=== PATIENT | female | born 1995 | race Caucasian/White ===

== ENCOUNTER 2017-06-14 13:34 | Emergency (ER) | payer OTHER ==
[2017-06-14] MEDS ORDERED: ONDANSETRON HCL INJ/PF 4 MG/2 ML SDV IV ONE (14:09)
[2017-06-14] MEDS ORDERED: PROCHLORPERAZINE EDISYLATE INJ 10 MG/2 ML VIAL IV ONE (14:09)
[2017-06-14] MEDS ORDERED: NORMAL SALINE 1000 ML 1,000 ML IV PRN (14:09)
--- NOTE | 2017-06-14 14:10 | ER Document Report ---
ED Medical Screen (RME) - General Chief Complaint: Headache >24 hrs old Stated Complaint: HEADACHE Time Seen by Provider: 06/14/17 14:09 TRAVEL OUTSIDE OF THE [place] IN LAST 30 DAYS: No - HPI Notes: 06/14/17 14:10 Headache with no relief with Fioricet and Reglan. - Related Data Allergies/Adverse Reactions: amoxicillin [From Augmentin] Allergy (Verified 06/14/17 13:41) clavulanic acid [From Augmentin] Allergy (Verified 06/14/17 13:41) Past Medical History - Social History Frequency of alcohol use: None Drug Abuse: None Renal/ Medical History: Denies: Hx Peritoneal Dialysis Past Surgical History: Reports: Hx Orthopedic Surgery - Right Foot Review of Systems - Review of Systems Constitutional: Other - Headache Physical Exam - Vital signs Vitals: Temp Pulse Resp BP Pulse Ox 98.0 F 94 16 121/74 98 06/14/17 13:38 06/14/17 13:38 06/14/17 13:38 06/14/17 13:38 06/14/17 13:38 - Respiratory Respiratory status: No respiratory distress Chest status: Nontender Breath sounds: Normal Chest palpation: Normal Course - Vital Signs Vital signs: Temp Pulse Resp BP Pulse Ox 98.0 F 94 16 121/74 98 06/14/17 13:38 06/14/17 13:38 06/14/17 13:38 06/14/17 13:38 06/14/17 13:38
[2017-06-14 14:41] LABS: ABSOLUTE LYMPHOCYTES (AUTO) 1.6 10^3/uL (0.5-4.7); ABSOLUTE MONOCYTES (AUTO) 0.5 10^3/uL (0.1-1.4); ABSOLUTE NEUT (AUTO) 6.8 10^3/uL (1.7-8.2); BASOPHILS % (AUTO) 0.3 % (0-2); EOSINOPHILS % (AUTO) 0.4 % (0-6); HEMOGLOBIN 13.4 g/dL (12.0-15.5); HGB HCT DIFFERENCE 1.2; LYMPHOCYTES % (AUTO) 17.7 % (13-45); MEAN CORPUSCULAR HEMOGLOBIN 29.2 pg (27.0-33.4); MEAN CORPUSCULAR HGB CONC 34.3 g/dL (32.0-36.0); MEAN CORPUSCULAR VOLUME 85 fl (80-97); MONOCYTES % (AUTO) 5.2 % (3-13); RED BLOOD COUNT 4.58 10^6/uL (3.72-5.28); RED CELL DISTRIBUTION WIDTH 13.1 % (11.5-14.0); SEGMENTED NEUTROPHILS % (AUTO) 76.4 % (42-78); WHITE BLOOD COUNT 8.8 10^3/uL (4.0-10.5)
[2017-06-14 14:59] LABS: ANION GAP 16 (5-19); BLOOD UREA NITROGEN 6 mg/dL (7-20); CALCIUM 9.8 mg/dL (8.4-10.2); CARBON DIOXIDE 22 mmol/L (22-30); CHLORIDE 102 mmol/L (98-107); CREATININE RESULT 0.44 mg/dL (0.52-1.25); GLUCOSE 79 mg/dL (75-110); POTASSIUM 4.4 mmol/L (3.6-5.0); SODIUM 139.6 mmol/L (137-145)
--- NOTE | 2017-06-14 15:06 | RADIOLOGY REPORT (SQ) ---
EXAM DESCRIPTION: CT HEAD WITHOUT COMPLETED DATE/TIME: 06/14/2017 2:52 pm REASON FOR STUDY: headache COMPARISON: None. TECHNIQUE: Axial images acquired through the brain without intravenous contrast. Images reviewed wi th bone, brain and subdural windows. Images stored on PACS. All CT scanners at this facility use dose modulation, iterative reconstruction, and/or weight based d osing when appropriate to reduce radiation dose to as low as reasonably achievable (ALARA). [facility]: Dose Right [facility]: CareDose [facility]: Dose Right [facility]: Teradose 4D [facility]: [place] RADIATION DOSE: mGy. LIMITATIONS: None. FINDINGS: VENTRICLES: Normal size and contour. CEREBRUM: No masses. No hemorrhage. No midline shift. No evidence for acute infarction. Normal gra y/white matter differentiation. No areas of low density in the white matter. CEREBELLUM: No masses. No hemorrhage. No alteration of density. No evidence for acute infarction. EXTRAAXIAL SPACES: No fluid collections. No masses. ORBITS AND GLOBE: No intra- or extraconal masses. Normal contour of globe without masses. CALVARIUM: No fracture. PARANASAL SINUSES: No fluid or mucosal thickening. SOFT TISSUES: No mass or hematoma. OTHER: No other significant finding. IMPRESSION: NORMAL BRAIN CT WITHOUT CONTRAST. EVIDENCE OF ACUTE STROKE: NO. COMMENT: Quality ID # [id number]: Final reports with documentation of one or more dose reduction techniques (e.g., Automated exposure control, adjustment of the mA and/or kV according to patient size, use of iterative reconstruction technique) TECHNICAL DOCUMENTATION: JOB ID: [id number] [employer]- All Rights Reserved
[2017-06-14] MEDS ORDERED: KETOROLAC TROMETHAMINE INJ/PF 30 MG/1 ML SDV IV ONE (15:10)
--- NOTE | 2017-06-14 15:11 | ER Document Report ---
ED Headache - General Chief Complaint: Headache >24 hrs old Stated Complaint: HEADACHE Time Seen by Provider: 06/14/17 14:09 Notes: 22-year-old female who is 15 weeks has had a headache for 6 weeks. Has spoken with her primary care provider as well as her LEGAL SECRETARY RECEPTIONIST regarding the headaches. Was started on Fioricet, Reglan for the nausea as well as Tylenol but nothing is helped. Went to [facility] today but states that she has they forgot about her in the waiting room so she decided to come here. She denies any neck stiffness. No fever. No abdominal pain. No shortness of breath. No chest pain. No other issues at this time. Denies any dysuria. Had one prior never experienced headaches during that . No recent contacts around sick people. No recent exposures to meningitis. No recent travel outside the country no compromise status of her immune system is reported. TRAVEL OUTSIDE OF THE [place] IN LAST 30 DAYS: No - HPI Patient complains to provider of: Headache, "Migraine" Onset: Other - 6 weeks ago Onset was: Cannot pinpoint Timing: Still present Quality of pain: Throbbing Severity: Moderate Pain Level: 4 Context: denies: CO exposure, Head injury, Insect bite, Meningitis exposure, Tick bite, Other Preceding symptoms: Typical of prior aura(s), Visual disturbance Associated symptoms: Nausea/vomiting, Photophobia. denies: Neck pain Exacerbated by: Light, Noise Similar symptoms previously: Yes Recently seen / treated by doctor: Yes - Related Data Allergies/Adverse Reactions: amoxicillin [From Augmentin] Allergy (Verified 06/14/17 13:41) clavulanic acid [From Augmentin] Allergy (Verified 06/14/17 13:41) Past Medical History - General Information source: Patient - Social History Smoking Status: Never Smoker Frequency of alcohol use: None Drug Abuse: None Lives with: Family, Spouse/Significant other Family History: Reviewed & Not Pertinent Patient has suicidal ideation: No Patient has homicidal ideation: No - Past Medical History Cardiac Medical History: Reports: None Renal/ Medical History: Denies: Hx Peritoneal Dialysis Past Surgical History: Reports: Hx Orthopedic Surgery - Right Foot Review of Systems - Review of Systems Constitutional: No symptoms reported EENT: No symptoms reported Cardiovascular: No symptoms reported Respiratory: No symptoms reported Gastrointestinal: No symptoms reported, Nausea, Vomiting Genitourinary: No symptoms reported Female Genitourinary: No symptoms reported Musculoskeletal: No symptoms reported Skin: No symptoms reported Hematologic/Lymphatic: No symptoms reported Neurological/Psychological: No symptoms reported, Headaches Physical Exam - Vital signs Vitals: Temp Pulse Resp BP Pulse Ox 98.0 F 94 16 121/74 98 06/14/17 13:38 06/14/17 13:38 06/14/17 13:38 06/14/17 13:38 06/14/17 13:38 Interpretation: Normal - General General appearance: Appears well, Alert - HEENT Head: Normocephalic, Atraumatic Eyes: Normal Pupils: PERRL Fundascopic: Normal - Respiratory Respiratory status: No respiratory distress Chest status: Nontender Breath sounds: Normal Chest palpation: Normal - Cardiovascular Rhythm: Regular Heart sounds: Normal auscultation Murmur: No - Abdominal Inspection: Normal Distension: No distension Bowel sounds: Normal Tenderness: Nontender Organomegaly: No organomegaly - Back Back: Normal, Nontender - Extremities General upper extremity: Normal inspection, Nontender, Normal color, Normal ROM , Normal temperature General lower extremity: Normal inspection, Nontender, Normal color, Normal ROM , Normal temperature, Normal weight bearing. No: Marcin's sign - Neurological Neuro grossly intact: Yes Cognition: Normal Orientation: AAOx4 Hayden Coma Scale Eye Opening: Spontaneous Brinnon Coma Scale Verbal: Oriented Hayden Coma Scale Motor: Obeys Commands Brinnon Coma Scale Total: 15 Speech: Normal Motor strength normal: LUE, RUE, LLE, RLE Sensory: Normal - Psychological Associated symptoms: Normal affect, Normal mood - Skin Skin Temperature: Warm Skin Moisture: Dry Skin Color: Normal Course - Re-evaluation Re-evalutation: 06/14/17 16:41 Patient states headache is gone. Wants to go home. Will DC at this time. Laboratory 06/14/17 06/14/17 14:30 14:30 WBC 8.8 RBC 4.58 Hgb 13.4 Hct 39.0 MCV 85 MCH 29.2 MCHC 34.3 RDW 13.1 Plt Count 229 Seg Neutrophils % 76.4 Lymphocytes % 17.7 Monocytes % 5.2 Eosinophils % 0.4 Basophils % 0.3 Absolute Neutrophils 6.8 Absolute Lymphocytes 1.6 Absolute Monocytes 0.5 Absolute Eosinophils 0.0 Absolute Basophils 0.0 Sodium 139.6 Potassium 4.4 Chloride 102 Carbon Dioxide 22 Anion Gap 16 BUN 6 L Creatinine 0.44 L Est GFR ( Amer) > 60 Est GFR (Non-Af Amer) > 60 Glucose 79 Calcium 9.8 Beta HCG, Quant 32597.00 H Total Beta HCG POSITIVE Head CT 06/14/17 14:09 IMPRESSION: NORMAL BRAIN CT WITHOUT CONTRAST. EVIDENCE OF ACUTE STROKE: NO. - Vital Signs Vital signs: Temp Pulse Resp BP Pulse Ox 98.0 F 94 16 121/74 98 06/14/17 13:38 06/14/17 13:38 06/14/17 13:38 06/14/17 13:38 06/14/17 13:38 - Laboratory Result Diagrams: 06/14/17 14:30 06/14/17 14:30 Laboratory results interpreted by me: 06/14/17 14:30 BUN 6 L Creatinine 0.44 L Beta HCG, Quant 34769.00 H Discharge - Discharge Clinical Impression: Migraine Qualifiers: Migraine type: with aura Status migrainosus presence: with status migrainosus Intractability: intractable Qualified Code(s): G43.111 - Migraine with aura, intractable, with status migrainosus Disposition: HOME, SELF-CARE Instructions: Migraine Headache ([facility]) Additional Instructions: If you develop any worsening symptoms which include but are not limited to the following please return immediately: Worsening headache, fever, neck stiffness, loss of vision, numbness, tingling, loss of function of the upper lower extremities or any other concerns.
[2017-06-14] MEDS ORDERED: METOCLOPRAMIDE HCL INJ/PF 10 MG/2 ML SDV IV ONE (15:18)
[2017-06-14] MEDS ORDERED: DIPHENHYDRAMINE HCL 50 MG/ML VIAL IV ONE (15:18)
[2017-06-14 17:30] VITALS: BP 120/58
== END 2017-06-14 17:43 | disposition home or self-care (01) ==
LOC: ER 13:34
DX: G43.111 Migraine with aura, intractable, with status migrainosus (principal); R11.0 Nausea; Z3A.15 15 weeks gestation of pregnancy; Z79.899 Other long term (current) drug therapy
CPT/HCPCS: 99284; 96361; 96374; 96375; 36415; 84702; 85025; 80048; 70450; J1200; J2765; J0780; J2405; J7030